=== PATIENT | female | born 1975 | race Caucasian/White ===

== ENCOUNTER 2019-09-07 09:06 | Emergency (ER) | payer OTHER ==
[~2019-09-07] VITALS: Ht 157.5 cm; Wt 68.9 kg
[2019-09-07 09:14] VITALS: Ht 157.5 cm; Wt 68.9 kg
[2019-09-07 09:56] LABS: BASOPHIL % 0.2 % (0-2); PLATELET COUNT 337 x10^3mcL (130-400)
[2019-09-07 10:01] LABS: RED CELL DISTRIBUTION WIDTH 15.1 % (11.5-14.5)
[2019-09-07 10:20] LABS: CHLORIDE SERUM 104 mmol/L (98-107); CREATININE SERUM 0.9 mg/dL (0.6-1.0); GFR1 > 60 mL/min; GLUCOSE SERUM 112 mg/dL (74-106); POTASSIUM SERUM 3.7 mmol/L (3.5-5.1); SODIUM SERUM 140 mmol/L (136-145)
[2019-09-07 10:25] LABS: ALBUMIN 3.7 g/dL (3.4-5.0); ALKALINE PHOSPHATASE 94 U/L (46-116); ALT/SGPT 28 U/L (14-59); AST/SGOT 18 U/L (15-37); BILIRUBIN TOTAL 0.5 mg/dL (0.20-1.00); LIPASE 241 IU/L (73-393); TOTAL PROTEIN, SERUM 7.3 g/dL (6.4-8.2)
[2019-09-07 11:34] VITALS: BP 116/60
== END 2019-09-07 11:34 | disposition home or self-care (01) ==
LOC: ED 09:06
PROVIDERS: Emergency Medicine
DX: O26.891 Other specified pregnancy related conditions, first trimester (principal); E86.0 Dehydration; E11.10 Type 2 diabetes mellitus with ketoacidosis without coma; R19.7 Diarrhea, unspecified
CPT/HCPCS: J1885; J2405; J7030

== ENCOUNTER 2019-09-24 10:31 | Emergency (ER) | payer OTHER ==
[~2019-09-24] VITALS: Ht 157.5 cm; Wt 70.4 kg
[2019-09-24 10:36] VITALS: Ht 157.5 cm; Wt 70.4 kg
[2019-09-24 13:36] LABS: BASOPHIL % 0.3 % (0-2); PLATELET COUNT 317 x10^3mcL (130-400)
[2019-09-24 13:37] LABS: RED CELL DISTRIBUTION WIDTH 17.2 % (11.5-14.5)
[2019-09-24 15:19] VITALS: BP 112/71
== END 2019-09-24 15:19 | disposition home or self-care (01) ==
LOC: ED 10:31
PROVIDERS: Emergency Medicine
DX: O20.8 Other hemorrhage in early pregnancy (principal); N93.8 Other specified abnormal uterine and vaginal bleeding
CPT/HCPCS: 36415